=== PATIENT | female | born 1940 | race Two or more races ===

== ENCOUNTER 2017-05-15 07:32 | Outpatient (CLI) | payer OTHER | END 2017-05-15 07:42 | disposition home or self-care (01) | LOC: MAMO-SONO 07:32 | DX: Z12.31 Encounter for screening mammogram for malignant neoplasm of breast (principal); Z87.898 Personal history of other specified conditions; N63.10 Unspecified lump in the right breast, unspecified quadrant; N63.20 Unspecified lump in the left breast, unspecified quadrant ==

== ENCOUNTER 2018-05-28 09:42 | Outpatient (CLI) | payer OTHER | END 2018-05-28 09:57 | disposition home or self-care (01) | LOC: MAMO-SONO 09:42 | DX: Z12.31 Encounter for screening mammogram for malignant neoplasm of breast (principal); Z87.898 Personal history of other specified conditions; R92.1 Mammographic calcification found on diagnostic imaging of breast ==

== ENCOUNTER 2019-12-28 12:48 | Outpatient (CLI) | payer OTHER | END 2019-12-28 13:00 | disposition home or self-care (01) | LOC: MAMO-SONO 12:48 | PROVIDERS: ATTEND Family Medicine | DX: Z12.31 Encounter for screening mammogram for malignant neoplasm of breast (principal); N64.59 Other signs and symptoms in breast ==